=== PATIENT | male | born 1995 ===

== ENCOUNTER 2020-11-15 00:31 | Emergency (ER) | payer SELFPAY ==
[~2020-11-15] VITALS: Ht 182.9 cm; Wt 88.6 kg
[2020-11-15 00:43] VITALS: BP 139/74
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
== END 2020-11-15 03:49 | disposition left against medical advice (07) ==
LOC: M ED 00:31
DX: Z53.21 Procedure and treatment not carried out due to patient leaving prior to being seen by health care provider (principal)